=== PATIENT | female | born 1960 | race Caucasian/White ===

== ENCOUNTER 2016-10-06 09:06 | Emergency (ER) | payer OTHER ==
[~2016-10-06] VITALS: Ht 172.7 cm; Wt 93.3 kg
[~2016-10-06 09:06] MED LIST: ATEN25TA PO; BCPILLS PO; DIPH25CA5 PO; NAPHCON A OPL
[2016-10-06 09:08] VITALS: Ht 172.7 cm; Wt 93.3 kg
[2016-10-06] MEDS ORDERED: CHOL1000 PO (09:38)
[2016-10-06] MEDS ORDERED: IBUP-1428 PO (09:38)
[2016-10-06] MEDS ORDERED: OXYC-57 PO (09:38)
[2016-10-06] MEDS ORDERED: ATEN50TA8 PO (09:38)
[2016-10-06] MEDS ORDERED: GABA-112 PO (09:38)
[2016-10-06] MEDS ORDERED: SODIUM CHLORIDE 0.9% 1000ML 1,000 ML IV STA (09:45)
[2016-10-06] MEDS ORDERED: ACETAMINOPHEN 500 MG TAB PO STA (09:45)
--- NOTE | 2016-10-06 09:47 | EMERGENCY ROOM VISIT NOTE ---
History Report prepared by Claudia: Ivan Machado Under the Supervision of: Dr. Miles Juan M.D. First contact with patient: 09:38 Chief Complaint: FEVER Stated Complaint: FEVER History of Present Illness The patient is a 56 year old female who presents to the Emergency Room with complaints of a persistent fever that started this morning upon waking. She had bladder surgery 4 days ago that was epidural. The patient says that she had a Segal put in as well as packing. She states that she had been doing fine after the surgery until this morning, when she woke up not feeling well. The patient says that she took her temperature and it was 101. She called her surgeon's office, and was told to come here for evaluation for a possible UTI. The patient denies any headaches, cough, sore throat, shortness of breath, or chest pain. She notes that she had been having a bit of pain ever since the surgery at the surgical site. The patient started walking the day after surgery once the catheter was taken out. She adds that she has been having a bit of vaginal spotting and mucous-like discharge. Source of History: patient Onset: This morning upon waking Position: other (global - fever) Symptom Intensity: 101 temperature Timing: other (persistent) Associated Symptoms: No headache, No sorethroat, No cough, No chest pain, No SOB Note: Associated symptoms: Bit of vaginal spotting and mucous-like discharge since surgery 4 days ago. Review of Systems See HPI for pertinent positives & negatives. A total of 10 systems reviewed and were otherwise negative. Past Medical & Surgical Medical Problems: (1) Diabetes (2) Fibromyalgia (3) Heart disease (4) Hypertension (5) Hypertension (6) Lung disease (7) Migraine (8) Seizure Family History Gallbladder disease Heart disease Hypertension Seizures Social History Smoking Status: Former Smoker Alcohol Use: occasionally Drug Use: none Marital Status: Housing Status: lives with significant other Occupation Status: employed Current/Historical Medications Scheduled Atenolol (Tenormin), 50 MG PO DAILY Cholecalciferol (Vitamin D3), 1,000 INTER.UNIT PO DAILY Gabapentin (Neurontin), 200 MG PO HS Scheduled PRN Ibuprofen (Motrin), 800 MG PO Q8H PRN for Pain Oxycodone/Acetaminophen 5MG/325MG (Percocet 5MG/325MG), 1 TABLET PO Q6H PRN for Pain Allergies Coded Allergies: Sulfa Drugs (Verified Allergy, Mild, HIVES, 03/09/13) Physical Exam Vital Signs Date Time Temp Pulse Resp B/P (MAP) Pulse Ox O2 Delivery O2 Flow Rate FiO2 10/06/16 11:53 37.2 68 20 153/86 97 10/06/16 11:13 37.2 10/06/16 10:37 67 10/06/16 10:30 60 20 153/86 99 Room Air 10/06/16 10:16 99 Room Air 10/06/16 09:08 37.2 79 17 159/86 98 Room Air Physical Exam GENERAL: Patient is a healthy-appearing well-nourished HEAD: Normocephalic atraumatic EYES: Ocular movements intact pupils equal and react to light OROPHARYNX mucous membranes are moist no exudates present no erythema or edema present NECK: Supple no nuchal rigidity CHEST: Good equal expansion LUNGS: Clear and equal to auscultation CARDIAC: Normal S1 and S2 ABDOMEN: Soft nontender no guarding BACK: No CVA tenderness VAGINAL EXAM: 2 surgical sites, the labia majora is bruised, tenderness at surgical sites, no evidence of infection at surgical sites. EXTREMITIES: No pain upon palpation normal muscle strength in all groups no clubbing cyanosis or edema NEURO: Patient is following commands is answering questions appropriately. Alert and oriented x3 Cranial Nerves 2-12 grossly intact Medical Decision & Procedures ER Provider Diagnostic Interpretation: Radiology results as stated below per my review and radiologist interpretation: CT OF THE PELVIS WITH CONTRAST CT DOSE: 412.99 mGy.cm CLINICAL HISTORY: Recent surgery. Fever and pain. TECHNIQUE: Axial images of the pelvis were obtained following intravenous injection of 121 cc of Optiray 320 IV. COMPARISON STUDY: None. FINDINGS: Note is made of a 4.2 x 3.7 cm hypodense mass arising from the anterior body of the uterus. The uterus is retroverted. There is mild infiltration within the inferior pelvis. There is no fluid collection to suggest an abscess. There is a small amount of gas within the bladder. Mild bladder wall thickening is noted. Caliber and wall thickness of visualized small and large bowel are normal. No suspicious osseous lesions are identified. IMPRESSION: 1. No fluid collection to suggest abscess within the pelvis. Minimal inferior pelvic infiltration which is likely postsurgical. Gas within the bladder likely related to recent instrumentation. 2. Mild bladder wall thickening which could be correlated with urinalysis. 3. 4.2 x 3.7 cm hypodense mass arising from the anterior body of the uterus which favors a fibroid. Electronically signed by: Charles Ag M.D. 10/06/2016 11:11 AM Dictated Date/Time: 10/06/2016 11:05 AM CHEST ONE VIEW PORTABLE CLINICAL HISTORY: Fever. COMPARISON STUDY: Chest radiograph February 18, 2008. FINDINGS: Lung volumes are normal. There is no pneumothorax or pleural effusion. Linear retrocardiac opacity within the left lower lung suggests atelectasis. Cardiac size is at the upper limits of normal. There is no evidence of pulmonary edema. IMPRESSION: 1. No acute cardiopulmonary findings. 2. Linear retrocardiac left lower lung opacity suggestive of atelectasis. Electronically signed by: Charles Ag M.D. 10/06/2016 10:38 AM Dictated Date/Time: 10/06/2016 10:37 AM Laboratory Results 10/06/16 10:02 Red Blood Count 4.01, Mean Corpuscular Volume 83.8, Mean Corpuscular Hemoglobin 27.9, Mean Corpuscular Hemoglobin Concent 33.3, Mean Platelet Volume 8.7, Neutrophils (%) (Auto) 68.8, Lymphocytes (%) (Auto) 23.3, Monocytes (%) (Auto) 5.2, Eosinophils (%) (Auto) 2.4, Basophils (%) (Auto) 0.3, Neutrophils # (Auto) 1.98, Lymphocytes # (Auto) 0.67, Monocytes # (Auto) 0.15, Eosinophils # (Auto) 0.07, Basophils # (Auto) 0.01 10/06/16 10:02 Test 10/06/16 10:02 10/06/16 10:09 10/06/16 10:15 White Blood Count 2.88 K/uL (4.8-10.8) Red Blood Count 4.01 M/uL (4.2-5.4) Hemoglobin 11.2 g/dL (12.0-16.0) Hematocrit 33.6 % (37-47) Mean Corpuscular Volume 83.8 fL (80-100) Mean Corpuscular Hemoglobin 27.9 pg (25-34) Mean Corpuscular Hemoglobin Concent 33.3 g/dl (32-36) Platelet Count 178 K/uL (130-400) Mean Platelet Volume 8.7 fL (7.4-10.4) Neutrophils (%) (Auto) 68.8 % Lymphocytes (%) (Auto) 23.3 % Monocytes (%) (Auto) 5.2 % Eosinophils (%) (Auto) 2.4 % Basophils (%) (Auto) 0.3 % Neutrophils # (Auto) 1.98 K/uL (1.4-6.5) Lymphocytes # (Auto) 0.67 K/uL (1.2-3.4) Monocytes # (Auto) 0.15 K/uL (0.11-0.59) Eosinophils # (Auto) 0.07 K/uL (0-0.5) Basophils # (Auto) 0.01 K/uL (0-0.2) RDW Standard Deviation 42.3 fL (36.4-46.3) RDW Coefficient of Variation 13.8 % (11.5-14.5) Immature Granulocyte % (Auto) 0.0 % Immature Granulocyte # (Auto) 0.00 K/uL (0.00-0.02) Est Creatinine Clear Calc Drug Dose 87.3 ml/min Estimated GFR () 86.3 Estimated GFR (Non- 74.5 BUN/Creatinine Ratio 14.0 (10-20) Calcium Level 8.5 mg/dl (8.5-10.1) Total Bilirubin 0.3 mg/dl (0.2-1) Direct Bilirubin < 0.1 mg/dl (0-0.2) Aspartate Amino Transf (AST/SGOT) 31 U/L (15-37) Alanine Aminotransferase (ALT/SGPT) 39 U/L (12-78) Alkaline Phosphatase 41 U/L (45-117) Total Protein 7.0 gm/dl (6.4-8.2) Albumin 3.2 gm/dl (3.4-5.0) Bedside Hemoglobin 11.2 g/dl (12.0-16.0) Bedside Hematocrit 33 % (37-47) Bedside Sodium 139 mEq/L (135-144) Bedside Potassium 4.1 mEq/L (3.3-5.0) Bedside Chloride 102 mEq/L (101-112) Bedside Total CO2 25 mEq/l (24-31) Anion Gap 17.0 mmol/L (16-25) Bedside Blood Urea Nitrogen 11 mg/dl (7-18) Bedside Creatinine 0.9 mg/dl (0.6-1.3) Bedside Glucose (other) 83 mg/dl (70-99) Bedside Ionized Calcium (Paco) 1.22 mmol/l (1.12-1.32) Urine Color YELLOW Urine Appearance CLEAR (CLEAR) Urine pH 5.5 (4.5-7.5) Urine Specific Delta 1.009 (1.000-1.030) Urine Protein NEG (NEG) Urine Glucose (UA) NEG (NEG) Urine Ketones NEG (NEG) Urine Occult Blood TRACE (NEG) Urine Nitrite NEG (NEG) Urine Bilirubin NEG (NEG) Urine Urobilinogen NEG (NEG) Urine Leukocyte Esterase NEG (NEG) Urine WBC (Auto) 1-5 /hpf (0-5) Urine RBC (Auto) 0-4 /hpf (0-4) Urine Hyaline Casts (Auto) 0 /lpf (0-5) Urine Epithelial Cells (Auto) 10-20 /lpf (0-5) Urine Bacteria (Auto) NEG (NEG) Labs reviewed by ED physician. Medications Administered Medications (Trade) Dose Ordered Sig/Pio Route Start Time Stop Time Status Last Admin Dose Admin Acetaminophen (Tylenol Tab) 1,000 mg NOW STAT PO 10/06/16 09:45 10/06/16 09:49 DC 10/06/16 10:13 1,000 MG Sodium Chloride 1,000 ml @ 999 mls/hr Q1H1M STAT IV 10/06/16 09:45 10/06/16 10:45 DC 10/06/16 10:11 999 MLS/HR ED Course 0939: Past medical records reviewed. The patient was evaluated in room B6. A complete history and physical examination was performed. 0945: Ordered NSS 1000 ml @ 999 mls/hr IV, Tylenol Tab 1000 mg PO. 1127: Upon reexamination the patient is resting comfortably. I discussed results and treatment plan with the patient. She verbalizes agreement and understanding. The patient is ready for discharge. Medical Decision Prior records/ancillary studies reviewed. Triage Nursing notes reviewed. Differential diagnosis: Etiologies such as viral syndrome, otitis, pharyngitis, pneumonia, influenza, meningitis, urinary tract infection, sepsis, bacteremia, as well as others were entertained. Medication Reconciliation: I attest that I have personally reviewed the patient' s current medication list Blood Pressure Screening: Patient was found to have an elevated blood pressure and was referred to their primary care doctor for recheck and further treatment This is a 56-year-old female who presents emergency department complaining of fever. I will note that the patient is afebrile here in the emergency department and she does not have an elevation in her white blood count cell count. The patient's chest x-ray is concerning for atelectasis. The patient also has no evidence of chest pain and no shortness of breath. Her surgical wound appears to be healing fine and there is no evidence of abscess on CAT scan. Based on these findings I felt that the patient could be sent home with an incentive spirometer. The patient is going to follow-up with her surgeon and was in agreement with the treatment plan. Impression Primary Impression: Fever Scribe Attestation The scribe's documentation has been prepared under my direction and personally reviewed by me in its entirety. I confirm that the note above accurately reflects all work, treatment, procedures, and medical decision making performed by me. Departure Information Dispostion Home / Self-Care Referrals Silvina Briones D.O. (PCP) Patient Instructions Atelectasis, ED Atelectasis, ED Fever Unconf Cause, My [facility] Additional Instructions Need follow up with Surgeon You were found to have an elevated blood pressure today (>120 sytolic or >90 diastolic). Per medicare guidelines, you need to follow up with this blood pressure screening with your Primary Care Physician (PCP). For a new PCP call [phone]. Culture results are usually available in approx 48 hours You have been examined and treated today on an emergency basis only. This is not a substitute for, or an effort to provide, complete comprehensive medical care. It is impossible to recognize and treat all injuries or illnesses in a single emergency department visit. It is therefore important that you follow up closely with DR Briones. Call as soon as possible for an appointment. Thank you for your time and consideration. I look forward to speaking with you again soon. Please don't hesitate to call us if you have any questions. Problem Qualifiers Primary Impression: Fever Fever type: unspecified Qualified Codes: R50.9 - Fever, unspecified
[2016-10-06] MEDS ORDERED: OPTIRAY 320 IV PRN (10:00)
[2016-10-06 10:16] VITALS: O2SAT 99
[2016-10-06 10:23] LABS: ISTAT CREATININE 0.9 mg/dl (0.6-1.3); ISTAT HEMOGLOBIN 11.2 g/dl (12.0-16.0); ISTAT IONIZED CALCIUM 1.22 mmol/l (1.12-1.32)
[2016-10-06 10:26] LABS: BASO % 0.3 %; BASO ABS # 0.01 K/uL (0-0.2); COMPLETE YES; EOS % 2.4 %; HEMATOCRIT 33.6 % (37-47); LYMPH % 23.3 %; LYMPH ABS # 0.67 K/uL (1.2-3.4); MEAN CELL VOLUME 83.8 fL (80-100); MEAN CORPUSCULAR HEMOGLOBIN 27.9 pg (25-34); MEAN CORPUSCULAR HGB CONC 33.3 g/dl (32-36); MEAN PLATELET VOLUME 8.7 fL (7.4-10.4); MONO % 5.2 %; NEUT % 68.8 %; PLATELET COUNT 178 K/uL (130-400); RED BLOOD COUNT 4.01 M/uL (4.2-5.4); WHITE BLOOD COUNT 2.88 K/uL (4.8-10.8)
--- NOTE | 2016-10-06 10:40 | DIAGNOSTIC IMAGING REPORT ---
CHEST ONE VIEW PORTABLE CLINICAL HISTORY: Fever. COMPARISON STUDY: Chest radiograph February 18, 2008. FINDINGS: Lung volumes are normal. There is no pneumothorax or pleural effusion. Linear retrocardiac opacity within the left lower lung suggests atelectasis. Cardiac size is at the upper limits of normal. There is no evidence of pulmonary edema. IMPRESSION: 1. No acute cardiopulmonary findings. 2. Linear retrocardiac left lower lung opacity suggestive of atelectasis. Electronically signed by: Charles Ag M.D. 10/06/2016 10:38 AM Dictated Date/Time: 10/06/2016 10:37 AM
[2016-10-06 10:48] LABS: ALT/SGPT 39 U/L (12-78); AST/SGOT 31 U/L (15-37); BLOOD UREA NITROGEN 12 mg/dl (7-18); CALCIUM 8.5 mg/dl (8.5-10.1); CARBON DIOXIDE 27 mmol/L (21-32); CHLORIDE 107 mmol/L (98-107); CREATININE 0.88 mg/dl (0.60-1.20); GLUCOSE 81 mg/dl (70-99); POTASSIUM 4.1 mmol/L (3.5-5.1); SODIUM 142 mmol/L (136-145)
[2016-10-06 10:51] LABS: URINE APPEARANCE CLEAR (CLEAR); URINE BILIRUBIN NEG (NEG); URINE COLOR YELLOW; URINE NITRITE NEG (NEG); URINE PH 5.5 (4.5-7.5); URINE SPECIFIC GRAVITY 1.009 (1.000-1.030); UROBILINOGEN NEG (NEG); ZZUR CULT IF INDIC CLEAN CATCH NO
[2016-10-06 10:51] LABS: ALKALINE PHOSPHATASE 41 U/L (45-117)
[2016-10-06 10:54] LABS: MANUAL MICROSCOPIC REQUIRED? NO; REVIEW REQ? NO
--- NOTE | 2016-10-06 11:12 | DIAGNOSTIC IMAGING REPORT ---
CT OF THE PELVIS WITH CONTRAST CT DOSE: 412.99 mGy.cm CLINICAL HISTORY: Recent surgery. Fever and pain. TECHNIQUE: Axial images of the pelvis were obtained following intravenous injection of 121 cc of Optiray 320 IV. COMPARISON STUDY: None. FINDINGS: Note is made of a 4.2 x 3.7 cm hypodense mass arising from the anterior body of the uterus. The uterus is retroverted. There is mild infiltration within the inferior pelvis. There is no fluid collection to suggest an abscess. There is a small amount of gas within the bladder. Mild bladder wall thickening is noted. Caliber and wall thickness of visualized small and large bowel are normal. No suspicious osseous lesions are identified. IMPRESSION: 1. No fluid collection to suggest abscess within the pelvis. Minimal inferior pelvic infiltration which is likely postsurgical. Gas within the bladder likely related to recent instrumentation. 2. Mild bladder wall thickening which could be correlated with urinalysis. 3. 4.2 x 3.7 cm hypodense mass arising from the anterior body of the uterus which favors a fibroid. Electronically signed by: Charles Ag M.D. 10/06/2016 11:11 AM Dictated Date/Time: 10/06/2016 11:05 AM
[2016-10-06 11:53] VITALS: BP 153/86; PULSE 68; TEMP 37.2; O2SAT 97
== END 2016-10-06 11:56 | disposition home or self-care (01) ==
LOC: C.EDB 09:09
DX: R50.9 Fever, unspecified (principal); E11.9 Type 2 diabetes mellitus without complications; M79.7 Fibromyalgia; I51.9 Heart disease, unspecified; I10 Essential (primary) hypertension; R56.9 Unspecified convulsions; Z82.49 Family history of ischemic heart disease and other diseases of the circulatory system; Z82.0 Family history of epilepsy and other diseases of the nervous system; Z87.891 Personal history of nicotine dependence

== ENCOUNTER 2016-10-08 13:13 | Emergency (ER) | payer OTHER ==
[~2016-10-08] VITALS: Ht 172.7 cm; Wt 92.1 kg
[~2016-10-08 13:13] MED LIST changes: -ATEN25TA PO; +ATEN50TA8 PO; -BCPILLS PO; +CHOL1000 PO; -DIPH25CA5 PO; +GABA-112 PO; +IBUP-1428 PO; -NAPHCON A OPL; +OXYC-57 PO
[2016-10-08 13:15] VITALS: Ht 172.7 cm; Wt 92.1 kg
[2016-10-08] MEDS ORDERED: SODIUM CHLORIDE 0.9% 1000ML 1,000 ML IV STA (13:51)
--- NOTE | 2016-10-08 13:51 | EMERGENCY ROOM VISIT NOTE ---
History Report prepared by Claudia: Seble Sinha Under the Supervision of: Dr. Emelyn Campuzano D.O. First contact with patient: 13:19 Chief Complaint: FEVER Stated Complaint: POST SURGERY FEVER History of Present Illness The patient is a 56 year old female who presents to the Emergency Room with complaints of an intermittent fever for the past 3 days. The patient had surgery one week ago at [facility] to repair her prolapsed bladder. Her packing and Segal catheter were removed the day after her surgery. The patient developed a fever 3 days ago and was told by her surgeon to come to the ED for evaluation. She had labs, a CT, and a CXR at that time. She was discharged home with an incentive spirometer. The patient states that her fever has persisted. She is taking ibuprofen for her fever and as soon as it wears off her symptoms return. Today her temperature was 102.3. She spoke with a nurse that recommended that she come back to the ER for evaluation today. The patient states that last night she started experiencing some "twinging" with urination similar to previous UTIs. She also reports lower abdominal cramping, nausea, and vaginal discharge and spotting. She rates her pain as a 2/10 in severity. The patient has been having normal bowel movements. Pt denies change in vision, chest pain, shortness of breath, vomiting, diarrhea, and melena. Source of History: patient Onset: 3 days ago Position: head Symptom Intensity: temp of 102.3 Quality: other (fever) Timing: intermittent Modifying Factors (Relieving): ibuprofen Associated Symptoms: + nausea, + abdominal pain, + urinary symptoms, No chest pain, No SOB, No vomiting, No melena, No hematochezia, No diarrhea Review of Systems See HPI for pertinent positives & negatives. A total of 10 systems reviewed and were otherwise negative. Past Medical & Surgical Medical Problems: (1) Diabetes (2) Fibromyalgia (3) Heart disease (4) Hypertension (5) Hypertension (6) Lung disease (7) Migraine (8) Psoriasis (9) Seizure Family History Gallbladder disease Heart disease Hypertension Seizures Social History Smoking Status: Former Smoker Alcohol Use: occasionally Drug Use: none Marital Status: Housing Status: lives with significant other Occupation Status: employed Current/Historical Medications Scheduled Atenolol (Tenormin), 50 MG PO DAILY Cephalexin Monohydrate (Keflex), 500 MG PO BID Cholecalciferol (Vitamin D3), 1,000 INTER.UNIT PO DAILY Gabapentin (Neurontin), 200 MG PO HS Gabapentin (Neurontin), 100 MG PO QAM Triamcinolone Acet (Triamcinolone Acetonide), 1 APPLN TOP BID Scheduled PRN Ibuprofen (Motrin), 800 MG PO Q8H PRN for Pain Oxycodone/Acetaminophen 5MG/325MG (Percocet 5MG/325MG), 1 TABLET PO Q6H PRN for Pain Allergies Coded Allergies: Sulfa Drugs (Verified Allergy, Mild, HIVES, 03/09/13) Physical Exam Vital Signs Date Time Temp Pulse Resp B/P (MAP) Pulse Ox O2 Delivery O2 Flow Rate FiO2 10/08/16 16:50 36.8 67 18 156/74 98 10/08/16 16:27 67 18 156/74 10/08/16 13:15 36.8 79 18 149/79 98 Room Air Physical Exam GENERAL: alert, well appearing, well nourished, no distress, non-toxic EYE EXAM: normal conjunctiva, PERRL and EOM's grossly intact OROPHARYNX: no exudate, no erythema, lips, buccal mucosa, and tongue normal and mucous membranes are moist NECK: supple, no nuchal rigidity, no adenopathy, non-tender LUNGS: Clear to auscultation. Normal chest wall mechanics HEART: no murmurs, S1 normal and S2 normal ABDOMEN: abdomen soft, non-tender, normo-active bowel sounds, no masses, no rebound or guarding. PELVIS: Two small horizontal incisions on the superior aspect of her labia majora with surrounding ecchymosis. They are well healed, no surrounding erythema or warmth. The ecchymosis is consistent with recent surgery and starting to heal. BACK: Back is symmetrical on inspection and there is no deformity, no midline tenderness, no CVA tenderness. SKIN: no rashes and no bruising UPPER EXTREMITIES: upper extremities are grossly normal. LOWER EXTREMITIES: No pitting edema. NEURO EXAM: Normal sensorium, cranial nerves II-XII grossly intact, normal speech, no gross weakness of arms, no gross weakness of legs. Medical Decision & Procedures ER Provider Diagnostic Interpretation: Radiology results have been interpreted by the radiologist and reviewed by me. CHEST ONE VIEW PORTABLE CLINICAL HISTORY: Postop fever COMPARISON STUDY: 10/06/2016 FINDINGS: The heart is borderline enlarged. There is no failure. There is no focal pulmonary consolidation. There are no pleural effusions. There are linear subsegmental atelectatic changes at the left lung base.[ IMPRESSION: No active disease in the chest. Electronically signed by: Yahir Hamilton M.D. 10/08/2016 2:06 PM Dictated Date/Time: 10/08/2016 2:[address] ANGIOGRAM OF THE CHEST CLINICAL HISTORY: Atypical chest pain COMPARISON STUDY: Conventional radiographic study dated 10/06/2016 TECHNIQUE: Following the IV administration of 96 mL of Optiray-320, CT angiogram of the thorax was performed from the thoracic inlet to the lung bases utilizing the pulmonary embolus protocol. Images are reviewed in the axial, sagittal, and coronal planes. IV contrast was administered without complication. MIP imaging was performed. CT DOSE: 419.42 mGy.cm FINDINGS: Axillary lymph nodes are the upper limits of normal in size. There is a 7 mm prevascular lymph node. There is no pathologic hilar adenopathy. The ascending thoracic aorta measures 36 mm. No intimal flaps are visualized. There were no pulmonary artery filling defects to indicate acute pulmonary embolism. There are small bilateral pleural effusions. There are dependent bibasal airspace opacities likely atelectatic. IMPRESSION: 1. No evidence of acute pulmonary embolism 2. Small bilateral pleural effusions 3. Bilateral dependent airspace opacities likely atelectatic 4. Axillary lymph nodes at the upper limits of normal in size Electronically signed by: Yahir Hamilton M.D. 10/08/2016 4:00 PM Dictated Date/Time: 10/08/2016 3:51 PM Laboratory Results 10/08/16 14:08 Red Blood Count 4.33, Mean Corpuscular Volume 83.1, Mean Corpuscular Hemoglobin 28.2, Mean Corpuscular Hemoglobin Concent 33.9, Mean Platelet Volume 8.8, Neutrophils (%) (Auto) 68.9, Lymphocytes (%) (Auto) 22.0, Monocytes (%) (Auto) 7.5, Eosinophils (%) (Auto) 0.8, Basophils (%) (Auto) 0.4, Neutrophils # (Auto) 1.66, Lymphocytes # (Auto) 0.53, Monocytes # (Auto) 0.18, Eosinophils # (Auto) 0.02, Basophils # (Auto) 0.01 10/08/16 14:08 Test 10/08/16 14:08 10/08/16 14:16 White Blood Count 2.41 K/uL (4.8-10.8) Red Blood Count 4.33 M/uL (4.2-5.4) Hemoglobin 12.2 g/dL (12.0-16.0) Hematocrit 36.0 % (37-47) Mean Corpuscular Volume 83.1 fL (80-100) Mean Corpuscular Hemoglobin 28.2 pg (25-34) Mean Corpuscular Hemoglobin Concent 33.9 g/dl (32-36) Platelet Count 129 K/uL (130-400) Mean Platelet Volume 8.8 fL (7.4-10.4) Neutrophils (%) (Auto) 68.9 % Lymphocytes (%) (Auto) 22.0 % Monocytes (%) (Auto) 7.5 % Eosinophils (%) (Auto) 0.8 % Basophils (%) (Auto) 0.4 % Neutrophils # (Auto) 1.66 K/uL (1.4-6.5) Lymphocytes # (Auto) 0.53 K/uL (1.2-3.4) Monocytes # (Auto) 0.18 K/uL (0.11-0.59) Eosinophils # (Auto) 0.02 K/uL (0-0.5) Basophils # (Auto) 0.01 K/uL (0-0.2) RDW Standard Deviation 41.9 fL (36.4-46.3) RDW Coefficient of Variation 13.9 % (11.5-14.5) Immature Granulocyte % (Auto) 0.4 % Immature Granulocyte # (Auto) 0.01 K/uL (0.00-0.02) D-Dimer 3990 ug/L FEU (0-500) Anion Gap 8.0 mmol/L (3-11) Est Creatinine Clear Calc Drug Dose 84.8 ml/min Estimated GFR () 84.0 Estimated GFR (Non- 72.5 BUN/Creatinine Ratio 9.1 (10-20) Lactic Acid Level 0.8 mmol/L (0.4-2.0) Calcium Level 8.7 mg/dl (8.5-10.1) Total Bilirubin 0.5 mg/dl (0.2-1) Aspartate Amino Transf (AST/SGOT) 77 U/L (15-37) Alanine Aminotransferase (ALT/SGPT) 91 U/L (12-78) Alkaline Phosphatase 52 U/L (45-117) Total Protein 7.8 gm/dl (6.4-8.2) Albumin 3.6 gm/dl (3.4-5.0) Globulin 4.2 gm/dl (2.5-4.0) Albumin/Globulin Ratio 0.9 (0.9-2) Urine Color DK YELLOW Urine Appearance CLOUDY (CLEAR) Urine pH 7.0 (4.5-7.5) Urine Specific [place]ott 1.021 (1.000-1.030) Urine Protein TRACE (NEG) Urine Glucose (UA) NEG (NEG) Urine Ketones NEG (NEG) Urine Occult Blood 2+ (NEG) Urine Nitrite NEG (NEG) Urine Bilirubin NEG (NEG) Urine Urobilinogen NEG (NEG) Urine Leukocyte Esterase MODERATE (NEG) Urine WBC (Auto) >30 /hpf (0-5) Urine RBC (Auto) >30 /hpf (0-4) Urine Hyaline Casts (Auto) 10-30 /lpf (0-5) Urine Epithelial Cells (Auto) >30 /lpf (0-5) Urine Bacteria (Auto) 1+ (NEG) Date/Time Source Procedure Growth Status 10/08/16 14:16 Urine,Catheterized Urine Culture - Final MORE THAN THREE TYPES OF ORGANISMS ID... Complete Laboratory results per my review. Medications Administered Medications (Trade) Dose Ordered Sig/Pio Route Start Time Stop Time Status Last Admin Dose Admin Sodium Chloride 1,000 ml @ 999 mls/hr Q1H1M STAT IV 10/08/16 13:51 10/08/16 14:51 DC 10/08/16 14:12 999 MLS/HR Piperacillin Sod/ Tazobactam Sod (Zosyn Iv) 3.375 gm NOW STAT IV 10/08/16 15:34 10/08/16 15:35 DC 10/08/16 15:34 3.375 GM ED Course 1336: The patient was evaluated in room C1B. A complete history and physical exam was performed. 1351: NSS 1000 ml @ 999 mls/hr IV 1534: Zosyn 3.375 gm IV 1615: I reassessed the patient at this time. She is feeling better and resting comfortably. I discussed the results and treatment plan with the patient. I answered all pertaining questions that she had. She expressed understanding and verbalized agreement. The patient will be discharged home. Medical Decision Differential diagnoses includes but is not limited to gastritis, peptic ulcer disease, GERD, gallbladder disease, pancreatitis, small bowel obstruction, acute coronary syndrome, pericarditis, ischemic bowel, irritable bowel disease, irritable bowel syndrome, appendicitis, diverticulitis, malignancy, hernia, urinary tract infection, torsion, perforation, trauma, infectious. Review of EMR: The blood cultures from 2 days ago were negative. CT did not show any acute post-surgical complication. Medication Reconciliation: I attest that I have personally reviewed the patient' s current medication list. Blood pressure screening: Patient was found to have an elevated blood pressure and was referred to their primary doctor for recheck and further treatment. Patient seen here 2 days prior, with negative evaluation, no initiation of antibiotics, labs/imaging/cultures were reviewed and found to be negative for any acute infectious etiology or acute posterior usual consultation. Patient returned in today for additional fevers, and now a "twinge" in her lower abdomen consistent with prior urinary tract infections. Likely early urinary tract infection given lab results. Patient again noted to have leukopenia, however similar compared to prior. No other evidence of bacteremia/sepsis. Patient well-appearing here, antibiotics initiated, patient has appointment scheduled for 48 hours from now with her surgeon. Patient tolerating oral intake, and no concerns about pain control. D-dimer found be elevated, and given patient's concern for a burning in her chest she felt may be related to heartburn to medications, CTA of the chest was ordered, and was negative. Patient advised to continue using her incentive spirometer as previously directed. Did not feel patient's symptoms are presentation warranted repeat abdominal imaging. Patient's abdomen soft and nontender, incisions appear to be healing well. Discussed with patient use of antibiotics, continued used home medications, symptoms to watch and return for, she verbalized understanding was agreeable with plan. Patient aware repeat cultures were drawn , and she will be called for any abnormalities. Impression Primary Impression: Fever Additional Impression: UTI (urinary tract infection) Scribe Attestation The scribe's documentation has been prepared under my direction and personally reviewed by me in its entirety. I confirm that the note above accurately reflects all work, treatment, procedures, and medical decision making performed by me. Departure Information Dispostion Home / Self-Care Prescriptions Cephalexin Monohydrate (Keflex) 500 Mg Cap 500 MG PO BID, #14 CAP Prov: Emelyn Campuzano, DO 10/08/16 Referrals Silvina Briones D.O. (PCP) Forms HOME CARE DOCUMENTATION FORM, IMPORTANT VISIT INFORMATION Patient Instructions My [facility] Additional Instructions Please keep your appointment Saturday with your surgeon. Please take the antibiotics as prescribed. If you have any worsening pain, fevers/chills, nausea/vomiting, back pain, are unable to urinate or notice gross blood in your urine, develop increased vaginal discharge or bleeding, or you have any other new or concerning symptoms, please return to the emergency room. Problem Qualifiers Primary Impression: Fever Fever type: post-procedural Qualified Codes: R50.82 - Postprocedural fever Additional Impression: UTI (urinary tract infection) Urinary tract infection type: acute cystitis Hematuria presence: with hematuria Qualified Codes: N30.01 - Acute cystitis with hematuria
[2016-10-08] MEDS ORDERED: GABA-112 PO (13:53)
[2016-10-08] MEDS ORDERED: TRMCR115 TOP (13:53)
--- NOTE | 2016-10-08 14:07 | DIAGNOSTIC IMAGING REPORT ---
CHEST ONE VIEW PORTABLE CLINICAL HISTORY: Postop fever COMPARISON STUDY: 10/06/2016 FINDINGS: The heart is borderline enlarged. There is no failure. There is no focal pulmonary consolidation. There are no pleural effusions. There are linear subsegmental atelectatic changes at the left lung base.[ IMPRESSION: No active disease in the chest. Electronically signed by: Yahir Hamilton M.D. 10/08/2016 2:06 PM Dictated Date/Time: 10/08/2016 2:05 PM
[2016-10-08 14:29] LABS: BASO % 0.4 %; BASO ABS # 0.01 K/uL (0-0.2); COMPLETE YES; EOS % 0.8 %; IG% 0.4 %; LYMPH ABS # 0.53 K/uL (1.2-3.4); MEAN CELL VOLUME 83.1 fL (80-100); MEAN CORPUSCULAR HEMOGLOBIN 28.2 pg (25-34); MEAN CORPUSCULAR HGB CONC 33.9 g/dl (32-36); MEAN PLATELET VOLUME 8.8 fL (7.4-10.4); MONO % 7.5 %; NEUT % 68.9 %; PLATELET COUNT 129 K/uL (130-400); RED BLOOD COUNT 4.33 M/uL (4.2-5.4); WHITE BLOOD COUNT 2.41 K/uL (4.8-10.8)
[2016-10-08 14:45] LABS: BUN/CREATININE RATIO 9.1 (10-20); CALCIUM 8.7 mg/dl (8.5-10.1); CREATININE 0.9 mg/dl (0.60-1.20); POTASSIUM 4.1 mmol/L (3.5-5.1)
[2016-10-08 14:48] LABS: ALB/GLOB RATIO 0.9 (0.9-2)
[2016-10-08 14:51] LABS: URINE APPEARANCE CLOUDY (CLEAR); URINE BILIRUBIN NEG (NEG); URINE COLOR DK YELLOW; URINE EPITHELIAL CELL AUTO >30 /lpf (0-5); URINE NITRITE NEG (NEG); URINE SPECIFIC GRAVITY 1.021 (1.000-1.030); UROBILINOGEN NEG (NEG)
[2016-10-08 14:58] LABS: MANUAL MICROSCOPIC REQUIRED? NO; REVIEW REQ? NO
[2016-10-08] MEDS ORDERED: PIPERACILLIN/TAZOBACTAM 3.375 GM/100ML D5W IV STA (15:34)
[2016-10-08] MEDS ORDERED: OPTIRAY 320 IV PRN (16:00)
--- NOTE | 2016-10-08 16:02 | DIAGNOSTIC IMAGING REPORT ---
CT ANGIOGRAM OF THE CHEST CLINICAL HISTORY: Atypical chest pain COMPARISON STUDY: Conventional radiographic study dated 10/06/2016 TECHNIQUE: Following the IV administration of 96 mL of Optiray-320, CT angiogram of the thorax was performed from the thoracic inlet to the lung bases utilizing the pulmonary embolus protocol. Images are reviewed in the axial, sagittal, and coronal planes. IV contrast was administered without complication. MIP imaging was performed. CT DOSE: 419.42 mGy.cm FINDINGS: Axillary lymph nodes are the upper limits of normal in size. There is a 7 mm prevascular lymph node. There is no pathologic hilar adenopathy. The ascending thoracic aorta measures 36 mm. No intimal flaps are visualized. There were no pulmonary artery filling defects to indicate acute pulmonary embolism. There are small bilateral pleural effusions. There are dependent bibasal airspace opacities likely atelectatic. IMPRESSION: 1. No evidence of acute pulmonary embolism 2. Small bilateral pleural effusions 3. Bilateral dependent airspace opacities likely atelectatic 4. Axillary lymph nodes at the upper limits of normal in size Electronically signed by: Yahir Hamilton M.D. 10/08/2016 4:00 PM Dictated Date/Time: 10/08/2016 3:51 PM
[2016-10-08] MEDS ORDERED: CEPH500C PO (16:38)
[2016-10-08 16:50] VITALS: BP 156/74; PULSE 67; TEMP 36.8; O2SAT 98
== END 2016-10-08 16:50 | disposition home or self-care (01) ==
LOC: C.EDB 13:17 → C.EDC 16:50
DX: R50.82 Postprocedural fever (principal); N30.01 Acute cystitis with hematuria; E11.9 Type 2 diabetes mellitus without complications; M79.7 Fibromyalgia; I51.9 Heart disease, unspecified; I10 Essential (primary) hypertension; J98.4 Other disorders of lung; G43.909 Migraine, unspecified, not intractable, without status migrainosus; L40.9 Psoriasis, unspecified; Z83.79 Family history of other diseases of the digestive system; Z82.49 Family history of ischemic heart disease and other diseases of the circulatory system; Z87.891 Personal history of nicotine dependence; Z79.899 Other long term (current) drug therapy